=== PATIENT | male | born 1995 | race Caucasian/White ===

== ENCOUNTER 2018-03-12 15:40 | Emergency (ER) | payer OTHER ==
[~2018-03-12] VITALS: Ht 170.1 cm; Wt 65.8 kg
[2018-03-13 08:08] LABS: HEPATITIS B SURFACE AG Negative (Negative); HEPATITIS C AB <0.1 (0.0-0.9)
== END 2018-03-12 16:17 | disposition home or self-care (01) ==
LOC: ED 15:40
PROVIDERS: Nurse Practitioner Family
DX: Z77.21 Contact with and (suspected) exposure to potentially hazardous body fluids (principal)